=== PATIENT | female | born 1990 | race Caucasian/White ===

== ENCOUNTER 2020-07-27 08:14 | Emergency (ER) | payer OTHER ==
--- NOTE | 2020-07-27 08:23 | ED Physician Documentation ---
PD HPI CHEST PAIN - Stated complaint Stated Complaint: CHEST PX - History obtained from History obtained from: Patient - History of Present Illness Timing - onset: How many days ago (several days of pain, with worse today) Timing - onset during: Rest Timing - duration: Hours Timing - details: Gradual onset, Waxing and waning Quality: Aching, Pain Location: Substernal Radiation: Abdominal Improved by: Antacids. No: Rest Worsened by: No: Exertion Associated symptoms: Nausea. No: Shortness of air, Diaphoresis, Feeling faint / dizzy Similar symptoms before: Has not had sx before Recently seen: Not recently seen Review of Systems Constitutional: denies: Fever, Chills Nose: denies: Rhinorrhea / runny nose, Congestion Throat: denies: Sore throat Respiratory: denies: Cough GI: reports: Abdominal Pain, Nausea, Bloody / black stool (she sya might have some dark colored stool but not black per se.). denies: Abdominal Swelling, Vomiting, Constipation, Diarrhea : denies: Dysuria, Frequency Musculoskeletal: denies: Neck pain, Back pain Neurologic: reports: Generalized weakness. denies: Focal weakness, Numbness, Near syncope PD PAST MEDICAL HISTORY - Past Medical History Cardiovascular: None Respiratory: None Neuro: None Endocrine/Autoimmune: None GI: None - Present Medications Home Medications: Ambulatory Orders Medication Instructions Recorded Confirmed Albuterol Sulfate [Proair Hfa 1 - 2 puffs INH Q4H PRN 07/27/20 07/27/20 Inhaler] Lidocaine Viscous 2% [Xylocaine 5 ml PO Q4H PRN #100 ml 07/27/20 Viscous 2%] Loratadine [Claritin] 10 mg ORAL DAILY 07/27/20 07/27/20 Medroxyprogesterone Acetate 10 mg PO ONCE 07/27/20 07/27/20 [Provera] Pantoprazole Sodium 20 mg PO DAILY 30 Days #30 tab 07/27/20 Sucralfate [Carafate] 1 gm PO ACHS #20 tablet 07/27/20 - Allergies Allergies/Adverse Reactions: Allergies Allergy/AdvReac Type Severity Reaction Status Date / Time Sulfa (Sulfonamide Allergy Emesis Verified 07/27/20 08:17 Antibiotics) PD ED PE NORMAL - Vitals Vital signs reviewed: Yes - General General: Alert and oriented X 3, Well developed/nourished, Other (does appear uncomfortable) - HEENT HEENT: Pharynx benign - Neck Neck: Supple, no meningeal sign, No adenopathy - Cardiac Cardiac: RRR, No murmur - Respiratory Respiratory: No respiratory distress, Clear bilaterally, Other (no chestwall tenderness) - Abdomen Abdomen: Normal bowel sounds, Soft, Non distended, No organomegaly, Other (tender epigastric area) Results - Vitals Vitals: Vital Signs - 24 hr 07/27/20 07/27/20 07/27/20 08:19 08:32 09:45 Temperature 36.8 C 37.4 C 36.8 C Heart Rate 96 90 84 Respiratory 18 18 18 Rate Blood Pressure 139/89 H 129/82 H 127/81 H O2 Saturation 99 100 99 Oxygen O2 Source Room air - EKG (time done) 08:26 Rate: Rate (enter#) (88) Rhythm: NSR [place]: Normal Intervals: Normal [place] QRS: Normal Ischemia: Normal ST segments. No: ST elevation c/w ischemia, ST depression - Labs Labs: Laboratory Tests 07/27/20 07/27/20 07/27/20 08:54 08:54 08:54 WBC 5.4 RBC 4.95 Hgb 14.6 Hct 42.1 MCV 85.1 MCH 29.5 MCHC 34.7 RDW 12.2 Plt Count 261 MPV 10.3 Neut # (Auto) 3.1 Lymph # (Auto) 1.8 [place] # (Auto) 0.5 Eos # (Auto) 0.1 Baso # (Auto) 0.0 Absolute Nucleated RBC 0.00 Nucleated RBC % 0.0 Sodium 136 Potassium 4.4 Chloride 99 L Carbon Dioxide 28 Anion Gap 9.0 BUN 11 Creatinine 0.7 Estimated GFR (MDRD) 98 Glucose 98 Calcium 9.5 Total Bilirubin 1.2 H AST 23 ALT 33 Alkaline Phosphatase 75 Troponin I High Sens 2.3 Total Protein 7.6 Albumin 4.6 Globulin 3.0 Albumin/Globulin Ratio 1.5 Lipase 27 - Rads (name of study) chest xray Radiology: Prelim report reviewed (no acute process), See rad report PD MEDICAL DECISION MAKING - ED course Complexity details: reviewed results, re-evaluated patient (improved with GI cocktail. ), considered differential (seems likely GERD with esophagitis. Will check heart/lung causes and also consider gallbladder/pancreas too. ), d/w patient Departure - Departure Disposition: 01 Home, Self Care Clinical Impression: Chest pain Qualifiers: Chest pain type: unspecified Qualified Code(s): R07.9 - Chest pain, unspecified GERD with esophagitis Qualifiers: Esophagitis bleeding: without hemorrhage Qualified Code(s): K21.00 - Gastro- esophageal reflux disease with esophagitis, without bleeding Condition: Stable Record reviewed to determine appropriate education?: Yes Instructions: ED GERD Follow-Up: ALVIN Leigh [Provider Group] Prescriptions: Sucralfate [Carafate] 1 gm PO ACHS #20 tablet Pantoprazole Sodium 20 mg PO DAILY 30 Days #30 tab Lidocaine Viscous 2% [Xylocaine Viscous 2%] 5 ml PO Q4H PRN #100 ml PRN Reason: Pain Comments: No signs of causation from heart lungs pancreas liver. It does sound like an irritation of the stomach with acid refluxing causing irritation of the esophagus. I would have you take acid reducing medicine of pantoprazole daily for the next month. Use suckle fate to coat the stomach and esophagus several times daily for the next 5 days or so to initially treated better. To that add antacids such as Maalox or Mylanta and can combine with the lidocaine to help with pain in the short-term. Add Tylenol if needed for pain. [place] food as you have been doing until feeling better. Follow-up with your primary care if not improved well over the next 3 to 5 days and resolved by a week or so. Discharge Date/Time: 07/27/20 10:05
[2020-07-27] MEDS ORDERED: MAG HYDROX/AL HYDROX/SIMETH 30 ML UDC PO STA (08:40)
[2020-07-27] MEDS ORDERED: LIDOCAINE VISCOUS 2% 15 ML UDC MM STA (08:40)
[2020-07-27] MEDS ORDERED: FAMOTIDINE 20 MG TABLET PO STA (08:40)
[2020-07-27] MEDS ORDERED: ACETAMINOPHEN 325 MG TABLET PO STA (08:40)
[2020-07-27 09:02] LABS: BASOPHILS % (AUTO) 0.4 %; EOSINOPHILS # (AUTO) 0.1 10^3/uL (0.0-0.7); EOSINOPHILS % (AUTO) 1.1 %; HCT - HEMATOCRIT 42.1 % (37.0-47.0); HGB - HEMOGLOBIN 14.6 g/dL (12.0-16.0); LYMPHOCYTES # (AUTO) 1.8 10^3/uL (1.5-3.5); MEAN CORPUSCULAR HEMOGLOBIN 29.5 pg (27.0-31.0); MEAN CORPUSCULAR HGB CONC 34.7 g/dL (32.0-36.0); MEAN CORPUSCULAR VOLUME 85.1 fL (81.0-99.0); MEAN PLATELET VOLUME 10.3 fL (7.9-10.8); MONOCYTES # (AUTO) 0.5 10^3/uL (0.0-1.0); MONOCYTES % (AUTO) 8.8 %; NEUTROPHILS # (AUTO) 3.1 10^3/uL (1.5-6.6); NEUTROPHILS % (AUTO) 56.5 %; PLT - PLATELET COUNT 261 10^3/uL (130-450); RED BLOOD COUNT 4.95 10^6/uL (4.20-5.40); RED CELL DISTRIBUTION WIDTH 12.2 % (12.0-15.0); WHITE BLOOD COUNT 5.4 x10^3/uL (4.8-10.8)
--- NOTE | 2020-07-27 09:10 | XRAY Report ---
PROCEDURE: Chest 1 View X-Ray INDICATIONS: Chest Pain TECHNIQUE: One view of the chest was acquired. COMPARISON: None FINDINGS: Surgical changes and devices: None. Lungs and pleura: No pleural effusions or pneumothorax. Lungs are clear. Mediastinum: Mediastinal contours appear normal. Heart size is normal. Bones and chest wall: No suspicious bony lesions. Overlying soft tissues appear unremarkable. IMPRESSION: No acute pulmonary process. Reviewed by: Selena Baldwin MD on 07/27/2020 8:08 AM LUI Approved by: Selena Baldwin MD on 07/27/2020 8:08 AM LUI Station ID: [id number]
[2020-07-27 09:25] LABS: ALBUMIN 4.6 g/dL (3.2-5.5); ALBUMIN/GLOBULIN RATIO 1.5 (1.0-2.2); BILIRUBIN,TOTAL 1.2 mg/dL (0.2-1.0); CALCIUM 9.5 mg/dL (8.5-10.3); CREATININE 0.7 mg/dL (0.4-1.0); POTASSIUM 4.4 mmol/L (3.5-5.0); TOTAL PROTEIN 7.6 g/dL (6.7-8.2)
[2020-07-27 09:46] VITALS: BP 127/81
== END 2020-07-27 10:05 | disposition home or self-care (01) ==
LOC: ED 08:14
DX: K21.00 Gastro-esophageal reflux disease with esophagitis, without bleeding (principal); R07.89 Other chest pain
CPT/HCPCS: 36415; 71045; 80053; 83690; 84484; 85025; 93005; 99284; A9270

== ENCOUNTER 2020-08-31 00:04 | Emergency (ER) | payer OTHER ==
--- NOTE | 2020-08-31 00:24 | ED Physician Documentation ---
PD HPI CHEST PAIN - Stated complaint Stated Complaint: LT SIDE SHOULDER NUMB,CP - Chief complaint Chief Complaint: Cardiac - History obtained from History obtained from: Patient - History of Present Illness Timing - onset: How many days ago (3) Timing - duration: Days (3) Timing - details: Gradual onset, Waxing and waning Quality: Aching, Sharp, Pain Location: Left chest, Left shoulder/arm Radiation: Left upper extremity. No: Jaw, Neck Improved by: No: Rest Worsened by: Movement, Palpation. No: Exertion, Inspiration Associated symptoms: Feeling faint / dizzy. No: Shortness of air, Nausea, Palpi tations, Cough Similar symptoms before: Has not had sx before (seen a month ago for substernal and epigastric with presumed Dx gastritis/esophagitis. Treated with [id number] an d antacids and improved. She says this pain is different.) Recently seen: Clinic (had first Covid vaccine a week ago, with out really any symptoms the first few days. Had vaccine given in left deltoid.) Review of Systems Constitutional: denies: Fever, Chills Nose: denies: Rhinorrhea / runny nose, Congestion Throat: denies: Sore throat Respiratory: denies: Cough GI: denies: Nausea, Vomiting Skin: denies: Rash, Lesions Musculoskeletal: denies: Neck pain, Back pain Neurologic: denies: Generalized weakness, Near syncope, Syncope Immunocompromised: denies: Immunocompromised PD PAST MEDICAL HISTORY - Past Medical History Cardiovascular: None Respiratory: None Neuro: None Endocrine/Autoimmune: None GI: None PROCESSING ENGINEER: None : None HEENT: None Psych: None Musculoskeletal: None Derm: None - Past Surgical History Past Surgical History: Yes General: Cholecystectomy HEENT: Tonsil/Adenoidectomy - Present Medications Home Medications: Ambulatory Orders Medication Instructions Recorded Confirmed Albuterol Sulfate [Proair Hfa 1 - 2 puffs INH Q4H PRN 07/27/20 07/27/20 Inhaler] Lidocaine Viscous 2% [Xylocaine 5 ml PO Q4H PRN #100 ml 07/27/20 Viscous 2%] Loratadine [Claritin] 10 mg ORAL DAILY 07/27/20 07/27/20 Medroxyprogesterone Acetate 10 mg PO ONCE 07/27/20 07/27/20 [Provera] Pantoprazole Sodium 20 mg PO DAILY 30 Days #30 tab 07/27/20 Sucralfate [Carafate] 1 gm PO ACHS #20 tablet 07/27/20 dexAMETHasone [Decadron] 4 mg PO DAILY #5 tablet 08/31/20 - Allergies Allergies/Adverse Reactions: Allergies Allergy/AdvReac Type Severity Reaction Status Date / Time Sulfa (Sulfonamide Allergy Emesis Verified 08/31/20 00:13 Antibiotics) - Living Situation Living Situation: reports: With family Living Arrangement: reports: At home - Social History Does the pt smoke?: No Smoking Status: Never smoker Does the pt drink ETOH?: No Does the pt have substance abuse?: No - Immunizations Immunizations are current?: Yes PD ED PE NORMAL - Vitals Vital signs reviewed: Yes - General General: Alert and oriented X 3, No acute distress, Well developed/nourished - HEENT HEENT: Moist mucous membranes, Pharynx benign - Neck Neck: Supple, no meningeal sign, No adenopathy - Cardiac Cardiac: RRR, No murmur - Respiratory Respiratory: Clear bilaterally, Other (chestwall tenderness reproducing the pain on left pectoral and anterior shoulder area. Skin not sensitive. ) - Abdomen Abdomen: Soft, Non tender - Derm Derm: Normal color, Warm and dry - Extremities Extremities: No edema, No calf tenderness / cord - Neuro Neuro: Alert and oriented X 3, No motor deficit, Normal speech Results - Vitals Vitals: Vital Signs - 24 hr 08/31/20 08/31/20 08/31/20 00:13 00:41 02:16 Temperature 36.5 C 36.8 C Heart Rate 77 85 84 Respiratory 16 16 18 Rate Blood Pressure 125/81 H 128/89 H 105/66 O2 Saturation 98 100 97 Oxygen O2 Source Room air - EKG (time done) 00:09 Rate: Rate (enter#) (82) Rhythm: NSR [place]: Normal Intervals: Normal [place] QRS: Normal Ischemia: Normal ST segments. No: ST elevation c/w ischemia, ST depression Compare to prior EKG: Unchanged from prior EKG - Labs Labs: Laboratory Tests 08/31/20 08/31/20 08/31/20 00:28 00:28 00:28 WBC 7.4 RBC 4.72 Hgb 13.5 Hct 40.1 MCV 85.0 MCH 28.6 MCHC 33.7 RDW 12.4 Plt Count 278 MPV 9.8 Neut # (Auto) 4.2 Lymph # (Auto) 2.5 [place] # (Auto) 0.6 Eos # (Auto) 0.1 Baso # (Auto) 0.0 Absolute Nucleated RBC 0.00 Nucleated RBC % 0.0 Sodium 141 Potassium 3.8 Chloride 105 Carbon Dioxide 26 Anion Gap 10.0 BUN 15 Creatinine 0.7 Estimated GFR (MDRD) 98 Glucose 97 Calcium 9.6 Total Bilirubin 0.7 AST 20 ALT 32 Alkaline Phosphatase 82 Troponin I High Sens 2.5 Total Protein 6.9 Albumin 4.1 Globulin 2.8 Albumin/Globulin Ratio 1.5 Lipase 35 - Rads (name of study) chest xray Radiology: Prelim report reviewed (normal), See rad report PD MEDICAL DECISION MAKING - ED course Complexity details: considered differential, d/w patient Departure - Departure Disposition: 01 Home, Self Care Clinical Impression: Acute chest wall pain Condition: Stable Record reviewed to determine appropriate education?: Yes Instructions: ED Chest Pain Costochondritis Follow-Up: MIKE ESQUIVEL MD [Primary Care Provider] - Prescriptions: dexAMETHasone [Decadron] 4 mg PO DAILY #5 tablet Comments: Your EKG, chest x-ray, blood tests are good without any signs of more significant cause for your pain. You do have tenderness in the chest wall and this is suggestive of some inflammation in the muscle and skeletal system. This may relate to some inflammation and subsequent to your vaccine a week ago. It could be independent of that. I would suggest Decadron steroid anti-inflammatory daily for the next several days. Add Tylenol 500 mg 4 times a day. Add just some ibuprofen if needed for pains as well. Try to minimize the ibuprofen since you are to had stomach symptoms just a month or so ago. I would anticipate improvement in your chest pain over the next few days. Follow-up if not improved and return if worse Discharge Date/Time: 08/31/20 02:19
[2020-08-31 00:34] LABS: BASOPHILS % (AUTO) 0.5 %; EOSINOPHILS # (AUTO) 0.1 10^3/uL (0.0-0.7); EOSINOPHILS % (AUTO) 1.6 %; HCT - HEMATOCRIT 40.1 % (37.0-47.0); HGB - HEMOGLOBIN 13.5 g/dL (12.0-16.0); LYMPHOCYTES # (AUTO) 2.5 10^3/uL (1.5-3.5); LYMPHOCYTES % (AUTO) 33.2 %; MEAN CORPUSCULAR HEMOGLOBIN 28.6 pg (27.0-31.0); MEAN CORPUSCULAR HGB CONC 33.7 g/dL (32.0-36.0); MEAN PLATELET VOLUME 9.8 fL (7.9-10.8); MONOCYTES # (AUTO) 0.6 10^3/uL (0.0-1.0); MONOCYTES % (AUTO) 7.4 %; NEUTROPHILS # (AUTO) 4.2 10^3/uL (1.5-6.6); PLT - PLATELET COUNT 278 10^3/uL (130-450); RED BLOOD COUNT 4.72 10^6/uL (4.20-5.40); RED CELL DISTRIBUTION WIDTH 12.4 % (12.0-15.0); WHITE BLOOD COUNT 7.4 x10^3/uL (4.8-10.8)
[2020-08-31] MEDS ORDERED: KETOROLAC 15 MG/ML VIAL IVP STA (00:39)
[2020-08-31] MEDS ORDERED: MORPHINE 2 MG/ML CARPUJECT IVP STA (00:39)
[2020-08-31 00:51] LABS: ALBUMIN 4.1 g/dL (3.2-5.5); ALBUMIN/GLOBULIN RATIO 1.5 (1.0-2.2); BILIRUBIN,TOTAL 0.7 mg/dL (0.2-1.0); CALCIUM 9.6 mg/dL (8.5-10.3); CREATININE 0.7 mg/dL (0.4-1.0); POTASSIUM 3.8 mmol/L (3.5-5.0); TOTAL PROTEIN 6.9 g/dL (6.7-8.2)
[2020-08-31] MEDS ORDERED: ACETAMINOPHEN 325 MG TABLET PO STA (01:48)
[2020-08-31] MEDS ORDERED: DEXAMETHASONE 10 MG/ML VIAL IVP STA (01:48)
[2020-08-31 02:19] VITALS: BP 105/66
--- NOTE | 2020-08-31 08:15 | XRAY Report ---
PROCEDURE: Chest 1 View X-Ray INDICATIONS: Chest pain TECHNIQUE: One view of the chest was acquired. COMPARISON: 07/27/2020 FINDINGS: Surgical changes and devices: None. Lungs and pleura: No pleural effusions or pneumothorax. Lungs are clear. Mediastinum: Mediastinal contours appear normal. Heart size is normal. Bones and chest wall: No suspicious bony lesions. Overlying soft tissues appear unremarkable. IMPRESSION: No acute cardiopulmonary process demonstrated radiographically. Reviewed by: Marco Casillas MD on 08/31/2020 8:14 AM PDT Approved by: Marco Casillas MD on 08/31/2020 8:14 AM PDT Station ID: [id number]
== END 2020-08-31 02:19 | disposition home or self-care (01) ==
LOC: ED 00:04
DX: R07.89 Other chest pain (principal)
CPT/HCPCS: 36415; 71045; 80053; 83690; 84484; 85025; 93005; 96374; 96375; 99284; A9270

== ENCOUNTER 2020-11-08 11:58 | Emergency (ER) | payer OTHER ==
[2020-11-08 12:59] LABS: BASOPHILS % (AUTO) 0.5 %; EOSINOPHILS # (AUTO) 0.1 10^3/uL (0.0-0.7); EOSINOPHILS % (AUTO) 1.3 %; HCT - HEMATOCRIT 43.9 % (37.0-47.0); LYMPHOCYTES # (AUTO) 2.6 10^3/uL (1.5-3.5); LYMPHOCYTES % (AUTO) 43.9 %; MEAN CORPUSCULAR HEMOGLOBIN 28.9 pg (27.0-31.0); MEAN CORPUSCULAR HGB CONC 34.2 g/dL (32.0-36.0); MEAN CORPUSCULAR VOLUME 84.6 fL (81.0-99.0); MEAN PLATELET VOLUME 11.2 fL (7.9-10.8); MONOCYTES # (AUTO) 0.4 10^3/uL (0.0-1.0); MONOCYTES % (AUTO) 7.2 %; NEUTROPHILS # (AUTO) 2.8 10^3/uL (1.5-6.6); NEUTROPHILS % (AUTO) 46.8 %; PLT - PLATELET COUNT 265 10^3/uL (130-450); RED BLOOD COUNT 5.19 10^6/uL (4.20-5.40); RED CELL DISTRIBUTION WIDTH 12.8 % (12.0-15.0)
[2020-11-08 13:12] LABS: ALBUMIN 4.5 g/dL (3.2-5.5); ALBUMIN/GLOBULIN RATIO 1.5 (1.0-2.2); BILIRUBIN,TOTAL 0.9 mg/dL (0.2-1.0); CALCIUM 9.5 mg/dL (8.5-10.3); CREATININE 0.8 mg/dL (0.4-1.0); TOTAL PROTEIN 7.5 g/dL (6.7-8.2)
--- NOTE | 2020-11-08 13:44 | ED Physician Documentation ---
PD HPI ABD PAIN - Stated complaint Stated Complaint: ABD PX - Chief complaint Chief Complaint: Abd Pain - History obtained from History obtained from: Patient - History of Present Illness Timing - onset: How many days ago (2) Timing - duration: Days (2) Timing - details: Gradual onset Pain level max: 5 Pain level now: 2 Quality: Aching, Pain Location: RLQ, Suprapubic, LLQ Radiation: No: Chest, , Lower back, Left flank, Left shoulder, Right flank, Right shoulder, Upper back Improved by: No: Eating, Laying still, Vomiting, BM, Position, Meds Worsened by: Palpation. No: Eating, Moving, Breathing, Position Associated symptoms: Hematuria (states blood in her urine lately.). No: Fever, Nausea, Vomiting, Hematemesis, Diarrhea, Constipation, Melena, Hematochezia, Dysuria - Additional information Additional information: history of PCOS. Review of Systems Constitutional: denies: Fever, Chills Cardiac: denies: Chest pain / pressure Respiratory: denies: Cough GI: denies: Nausea, Vomiting : denies: Dysuria, Frequency, Hesitancy Skin: denies: Rash Musculoskeletal: denies: Neck pain, Back pain Neurologic: denies: Headache PD PAST MEDICAL HISTORY - Past Medical History Cardiovascular: None Respiratory: None Neuro: None Endocrine/Autoimmune: None GI: None PEER COUNSELOR: None : None HEENT: None Psych: None Musculoskeletal: None Derm: None - Past Surgical History Past Surgical History: Yes General: Cholecystectomy HEENT: Tonsil/Adenoidectomy - Present Medications Home Medications: Ambulatory Orders Medication Instructions Recorded Confirmed Albuterol Sulfate [Proair Hfa 1 - 2 puffs INH Q4H PRN 07/27/20 07/27/20 Inhaler] Lidocaine Viscous 2% [Xylocaine 5 ml PO Q4H PRN #100 ml 07/27/20 Viscous 2%] Loratadine [Claritin] 10 mg ORAL DAILY 07/27/20 07/27/20 Medroxyprogesterone Acetate 10 mg PO ONCE 07/27/20 07/27/20 [Provera] Pantoprazole Sodium 20 mg PO DAILY 30 Days #30 tab 07/27/20 Sucralfate [Carafate] 1 gm PO ACHS #20 tablet 07/27/20 dexAMETHasone [Decadron] 4 mg PO DAILY #5 tablet 08/31/20 - Allergies Allergies/Adverse Reactions: Allergies Allergy/AdvReac Type Severity Reaction Status Date / Time Sulfa (Sulfonamide Allergy Itching Verified 11/08/20 12:17 Antibiotics) - Social History Does the pt smoke?: No Smoking Status: Never smoker Does the pt drink ETOH?: No Does the pt have substance abuse?: No - Immunizations Immunizations are current?: Yes PD ED PE NORMAL - Vitals Vital signs reviewed: Yes - General General: Alert and oriented X 3, No acute distress - HEENT HEENT: Moist mucous membranes - Neck Neck: Supple, no meningeal sign - Cardiac Cardiac: RRR - Respiratory Respiratory: No respiratory distress, Clear bilaterally - Abdomen Abdomen: Soft, Non distended, Other (mild TTP over the B LQ of the abdomen. no peritoneal ) - Back Back: No CVA TTP, No spinal TTP - Derm Derm: Warm and dry - Extremities Extremities: No edema - Neuro Neuro: Alert and oriented X 3 Results - Vitals Vitals: Vital Signs - 24 hr 11/08/20 11/08/20 11/08/20 12:12 13:47 15:00 Temperature 36.6 C 36.8 C 36.5 C Heart Rate 73 82 80 Respiratory 16 16 16 Rate Blood Pressure 120/81 H 107/74 110/76 O2 Saturation 99 97 98 Oxygen O2 Source Room air - Labs Labs: Laboratory Tests 11/08/20 11/08/20 11/08/20 12:51 12:51 13:55 WBC 6.0 RBC 5.19 Hgb 15.0 Hct 43.9 MCV 84.6 MCH 28.9 MCHC 34.2 RDW 12.8 Plt Count 265 MPV 11.2 H Neut # (Auto) 2.8 Lymph # (Auto) 2.6 [place] # (Auto) 0.4 Eos # (Auto) 0.1 Baso # (Auto) 0.0 Absolute Nucleated RBC 0.00 Nucleated RBC % 0.0 Sodium 136 Potassium 4.0 Chloride 102 Carbon Dioxide 26 Anion Gap 8.0 BUN 7 Creatinine 0.8 Estimated GFR (MDRD) 84 L Glucose 93 Calcium 9.5 Total Bilirubin 0.9 AST 34 ALT 47 Alkaline Phosphatase 69 Total Protein 7.5 Albumin 4.5 Globulin 3.0 Albumin/Globulin Ratio 1.5 Lipase 33 Urine Color YELLOW Urine Clarity CLEAR Urine pH 6.5 Ur Specific [place] <=1.005 Urine Protein NEGATIVE Urine Glucose (UA) NEGATIVE Urine Ketones NEGATIVE Urine Occult Blood NEGATIVE Urine Nitrite NEGATIVE Urine Bilirubin NEGATIVE Urine Urobilinogen 0.2 (NORMAL) Ur Leukocyte Esterase NEGATIVE Ur Microscopic Review NOT INDICATED Urine Culture Comments NOT INDICATED Urine HCG, Qual NEGATIVE - Rads (name of study) CT abd/pelvis Radiology: Final report received, EMP read contemporaneously, See rad report (1. Appendix is normal. 2. No free fluid or free air. 3. No dilated loops of bowel. 4. Status post cholecystectomy. ) PD MEDICAL DECISION MAKING - ED course Complexity details: reviewed results, re-evaluated patient, considered differential, d/w patient ED course: 30-year-old female with abdominal pain. Unclear etiology. Does not want a pelvic ultrasound today. CT shows a normal appendix. Possible that her pain is related to her PCOS. Patient is well-appearing, nontoxic. Afebrile. Declines a pelvic exam as well. Denies any discharge, itching, etc. Patient counseled regarding signs and symptoms for which I believe and urgent re-evaluation would be necessary. Patient with good understanding of and agreement to plan and is comfortable going home at this time This document was made in part using voice recognition software. While efforts are made to proofread this document, sound alike and grammatical errors may occur. Departure - Departure Disposition: 01 Home, Self Care Clinical Impression: Abdominal pain Qualifiers: Abdominal location: lower abdomen, unspecified Qualified Code(s): R10.30 - Lo wer abdominal pain, unspecified Condition: Good Instructions: ED Abdominal Pain Unkn Cause Follow-Up: your,doctor in 1 week [Other] Comments: The cause of your symptoms is unclear today. There are no acute findings on your laboratory testing, urinalysis or CT scan to explain your symptoms. If symptoms continue, you can consider a pelvic ultrasound with your doctor. Return if you worsen. Discharge Date/Time: 11/08/20 15:36
[2020-11-08 14:05] LABS: BILIRUBIN,URINE NEGATIVE (NEGATIVE); GLUCOSE, URINE (UA) NEGATIVE (NEGATIVE); KETONES,URINE (UA) NEGATIVE (NEGATIVE); LEUKOCYTE ESTERASE, URINE NEGATIVE (NEGATIVE); NITRITE,URINE NEGATIVE (NEGATIVE); OCCULT BLOOD,URINE NEGATIVE (NEGATIVE); PH,URINE 6.5 PH (5.0-7.5); PROTEIN,URINE NEGATIVE (NEGATIVE); UROBILINOGEN,URINE 0.2 (NORMAL) E.U./dL (NORMAL)
[2020-11-08] MEDS ORDERED: IOPAMIDOL-300 100 ML VIAL ONE (14:20)
[2020-11-08 14:29] LABS: CLARITY,URINE CLEAR (CLEAR); HCG UR QUAL NEGATIVE
--- NOTE | 2020-11-08 15:01 | CT Report ---
PROCEDURE: Abdomen/Pelvis W INDICATIONS: RLQ abd pain CONTRAST: IV CONTRAST: Isovue 300 ml: 100 PO CONTRAST: *NO PO CONTRAST TECHNIQUE: After the administration of intravenous contrast, 5 mm thick sections acquired from the diaphragms to the symphysis. 5 mm thick coronal and sagittal reformats were acquired. For radiation dose reducti on, the following was used: automated exposure control, adjustment of mA and/or kV according to roly ent size. COMPARISON: None. FINDINGS: Image quality: Excellent. ABDOMEN: Lung bases: Lung bases are clear. Heart size is normal. Solid organs: Liver and spleen are normal in size and enhancement. Hepatic fatty infiltration. Gall bladder is surgically absent Biliary system is non dilated. Pancreas enhances normally. No adrenal nodules. Kidneys demonstrate normal size and enhancement, without hydronephrosis. Peritoneum and bowel: Bowel loops demonstrate normal wall thickness and caliber. No free fluid or a ir. The appendix is normal. Nodes and vessels: No retroperitoneal or mesenteric adenopathy by size criteria. Aorta and inferior vena cava are normal in size. Miscellaneous: No ventral hernias. PELVIS: Genitourinary: Bladder wall thickness is normal. Uterus and adnexa are within normal limits by CT i maging. If there is clinical concern for pelvic pathology, consider pelvic ultrasound for definitive evaluation of the reproductive organs. Miscellaneous: No inguinal hernias or adenopathy. Bones: No suspicious bony lesions. No vertebral body compression fractures. IMPRESSION: 1. Appendix is normal. 2. No free fluid or free air. 3. No dilated loops of bowel. 4. Status post cholecystectomy. Reviewed by: Vannesa Novak MD, PhD on 11/08/2020 3:00 PM PDT Approved by: Vannesa Novak MD, PhD on 11/08/2020 3:00 PM PDT Station ID: [id number]
[2020-11-08 15:36] VITALS: BP 110/76
[2020-11-08] MEDS ORDERED: IOPAMIDOL-300 100 ML VIAL IVP ONE (15:50)
== END 2020-11-08 15:36 | disposition home or self-care (01) ==
LOC: ED 11:58
DX: R10.30 Lower abdominal pain, unspecified (principal); E28.2 Polycystic ovarian syndrome
CPT/HCPCS: 36415; 74177; 80053; 81003; 81025; 83690; 85025; 99284; Q9967; 81001; 87086

== ENCOUNTER 2020-11-30 08:37 | Emergency (ER) | payer OTHER ==
[2020-11-30] MEDS ORDERED: DEXAMETHASONE 10 MG/ML VIAL PO STA (09:20)
[2020-11-30] MEDS ORDERED: CHERRY SYRUP 10 ML UDC PO ONE (09:20)
[2020-11-30] MEDS ORDERED: KETOROLAC 60 MG/2 ML VIAL IM STA (09:21)
--- NOTE | 2020-11-30 09:23 | ED Physician Documentation ---
PD HPI BACK PAIN - Stated complaint Stated Complaint: BACK PX - Chief complaint Chief Complaint: Back Pain - History obtained from History obtained from: Patient - History of Present Illness Timing - onset: How many days ago (3) Timing - duration: Days (3) Timing - details: Gradual onset, Still present Location: Mid, Lower Quality: Pain, Spasm, Sharp Associated symptoms: No: Fever, Weakness, Numbness, Incontinent of urine, Unable to urinate, Hematuria, Incontinent of stool Improves with: Rest, Position Contributing factors: Other (does not do much and cannot think of anything she did that would have caused back pain) Similar symptoms before: No diagnosis Recently seen: Clinic (routine follow up for PCOS) - Additional information Additional information: 30-year-old female with a history of polycystic ovarian syndrome has developed some mid back pain that is gone down into her lower back that began about 3 days ago. She is not had relief with ice or heat. She does not recall anything strenuous that she is done the could have gotten her back out of kilter. She does state that she usually has some back pain with her periods and she has been in to see the FAMILY THERAPIST in follow-up and has had a recent ultrasound for polycystic ovarian syndrome and she is on some Provera. She states that she has never had back pain with Provera before. She denies any urinary symptoms she denies any fever or nausea. Review of Systems Constitutional: denies: Fever Eyes: denies: Decreased vision Ears: denies: Ear pain Nose: denies: Congestion Throat: denies: Sore throat Cardiac: denies: Chest pain / pressure, Palpitations Respiratory: denies: Dyspnea, Cough GI: reports: Constipation. denies: Abdominal Pain, Nausea, Vomiting, Diarrhea : denies: Dysuria, Frequency Skin: denies: Rash Musculoskeletal: reports: Back pain. denies: Neck pain, Extremity pain PD PAST MEDICAL HISTORY - Past Medical History Cardiovascular: None Respiratory: None Neuro: None Endocrine/Autoimmune: None GI: None FAMILY THERAPIST: None : None HEENT: None Psych: None Musculoskeletal: None Derm: None - Past Surgical History Past Surgical History: Yes General: Cholecystectomy HEENT: Tonsil/Adenoidectomy - Present Medications Home Medications: Ambulatory Orders Medication Instructions Recorded Confirmed Albuterol Sulfate [Proair Hfa 1 - 2 puffs INH Q4H PRN 07/27/20 11/30/20 Inhaler] Loratadine [Claritin] 10 mg ORAL DAILY PRN 07/27/20 11/30/20 Medroxyprogesterone Acetate 10 mg PO ONCE 07/27/20 11/30/20 [Provera] Cyclobenzaprine [Flexeril] 10 mg PO TID PRN #20 tablet 11/30/20 HYDROcod/ACETAM 5/325 [[place] 5/325] 1 - 2 tablet PO Q6H PRN #14 tablet 11/30/20 - Allergies Allergies/Adverse Reactions: Allergies Allergy/AdvReac Type Severity Reaction Status Date / Time Sulfa (Sulfonamide Allergy Itching Verified 11/30/20 08:51 Antibiotics) - Social History Does the pt smoke?: No Smoking Status: Never smoker Does the pt drink ETOH?: No Does the pt have substance abuse?: No - Immunizations Immunizations are current?: Yes PD ED PE NORMAL - Vitals Vital signs reviewed: Yes (normal ) - General General: Alert and oriented X 3, No acute distress, Well developed/nourished, Other (moves slowly to sit up with back pain ) - HEENT HEENT: Atraumatic, PERRL, EOMI - Neck Neck: Supple, no meningeal sign, No bony TTP - Cardiac Cardiac: RRR, No murmur - Respiratory Respiratory: No respiratory distress, Clear bilaterally - Abdomen Abdomen: Normal bowel sounds, Soft, Non tender, Non distended, No organomegaly - Back Back: No CVA TTP, No spinal TTP, Other (general area of pain is from the ribs down and the area is non-tender. ) - Derm Derm: Normal color, Warm and dry, No rash - Extremities Extremities: No deformity, No edema - Neuro Neuro: Alert and oriented X 3, ship surveyor 2-12 intact, No motor deficit, No sensory deficit, Normal speech Eye Opening: Spontaneous Motor: Obeys Commands Verbal: Oriented GCS Score: 15 - Psych Psych: Normal mood, Normal affect Results - Vitals Vitals: Vital Signs - 24 hr 11/30/20 11/30/20 08:49 10:56 Temperature 36.2 C L 36.9 C Heart Rate 74 82 Respiratory 14 16 Rate Blood Pressure 118/74 113/67 O2 Saturation 99 99 Oxygen O2 Source Room air - Labs Labs: Laboratory Tests 11/30/20 09:40 Urine Color YELLOW Urine Clarity CLEAR Urine pH 6.5 Ur Specific [place] <=1.005 Urine Protein NEGATIVE Urine Glucose (UA) NEGATIVE Urine Ketones TRACE Urine Occult Blood TRACE-INTA Urine Nitrite NEGATIVE Urine Bilirubin NEGATIVE Urine Urobilinogen 0.2 (NORMAL) Ur Leukocyte Esterase NEGATIVE Ur Microscopic Review NOT INDICATED Urine Culture Comments NOT INDICATED Urine HCG, Qual NEGATIVE PD MEDICAL DECISION MAKING - ED course Complexity details: reviewed results, re-evaluated patient, considered differential, d/w patient ED course: 30-year-old female with 3 days of back pain does not have evidence of urinary tract infection. She is treated for low back pain Departure - Departure Disposition: Home, Self Care Clinical Impression: Back pain Qualifiers: Back pain location: low back pain Chronicity: acute Back pain laterality: b ilateral Sciatica presence: without sciatica Qualified Code(s): M54.5 - Low back pain Constipation Qualifiers: Constipation type: unspecified constipation type Qualified Code(s): K59.00 - Constipation, unspecified Condition: Stable Instructions: ED Spasm Back No Trauma Follow-Up: MIKE ESQUIVEL MD [Primary Care Provider] - Prescriptions: Cyclobenzaprine [Flexeril] 10 mg PO TID PRN #20 tablet PRN Reason: Spasms HYDROcod/ACETAM 5/325 [[place] 5/325] 1 - 2 tablet PO Q6H PRN #14 tablet PRN Reason: Pain Comments: Today the medications we have given you for your back pain specifically the [place] will make you constipated. The recommendation is to take a stimulant type laxative like milk of magnesia or magnesium citrate. Discharge Date/Time: 11/30/20 10:56
[2020-11-30 09:55] LABS: BILIRUBIN,URINE NEGATIVE (NEGATIVE); GLUCOSE, URINE (UA) NEGATIVE (NEGATIVE); KETONES,URINE (UA) TRACE mg/dL (NEGATIVE); LEUKOCYTE ESTERASE, URINE NEGATIVE (NEGATIVE); NITRITE,URINE NEGATIVE (NEGATIVE); OCCULT BLOOD,URINE TRACE-INTA (NEGATIVE); PH,URINE 6.5 PH (5.0-7.5); PROTEIN,URINE NEGATIVE (NEGATIVE); UROBILINOGEN,URINE 0.2 (NORMAL) E.U./dL (NORMAL)
[2020-11-30 09:57] LABS: CLARITY,URINE CLEAR (CLEAR); HCG UR QUAL NEGATIVE
[2020-11-30 10:56] VITALS: BP 113/67
== END 2020-11-30 10:56 | disposition home or self-care (01) ==
LOC: ED 08:37
DX: M54.5 Low back pain (principal); K59.00 Constipation, unspecified; E28.2 Polycystic ovarian syndrome
CPT/HCPCS: 81003; 81025; 96372; 99283; 99284; A9270; 81001; 87086

== ENCOUNTER 2020-12-02 07:42 | Emergency (ER) | payer OTHER ==
[2020-12-02] MEDS ORDERED: ONDANSETRON 4 MG/2 ML VIAL IVP STA (08:00)
[2020-12-02] MEDS ORDERED: HYDROmorphone 1 MG/ML CARPUJECT IVP STA (08:00)
--- NOTE | 2020-12-02 08:00 | ED Physician Documentation ---
PD HPI FEMALE - Stated complaint Stated Complaint: LOWER ABD PX - Chief complaint Chief Complaint: Abd Pain - History obtained from History obtained from: Patient - History of Present Illness Timing - onset: Today Timing - duration: Hours Timing - details: Abrupt onset, Still present Associated symptoms: Abdominal pain Contributing factors: Sexually active, Other (has had infertility work up and treatment and has "given up"). No: control OB-CARE AIDE History: G (0), P (0) Similar symptoms before: No diagnosis, Work up / diagnostics (CT and ultrasound .) Recently seen: Clinic, Emergency Dept - Additional information Additional information: 30-year-old female is began to have some pain in the right lower quadrant and she has had repeated episodes she has been evaluated at [facility] and she has had a pelvic ultrasound done showing some polycystic ovaries she has subsequently had a CT scan done of the abdomen pelvis showing a normal appendix. This morning on awakening she had pain in the right lower quadrant she had a severe increase in the pain that is sharp stabbing-like nature in the right lower quadrant and she felt that she was having some difficulty getting a urine stream going. She has treated herself her constipation with magnesium citrate and she has taken some Flexeril for pain she has had in her back. Review of Systems Constitutional: denies: Fever Eyes: denies: Decreased vision Ears: denies: Ear pain Nose: denies: Congestion Throat: denies: Sore throat Cardiac: denies: Chest pain / pressure Respiratory: denies: Dyspnea, Cough GI: reports: Abdominal Pain, Nausea, Vomiting. denies: Constipation, Diarrhea : denies: Dysuria, Frequency Skin: denies: Rash Musculoskeletal: reports: Back pain. denies: Neck pain, Extremity pain PD PAST MEDICAL HISTORY - Past Medical History Cardiovascular: None Respiratory: None Neuro: None Endocrine/Autoimmune: None GI: None CARE AIDE: None : None HEENT: None Psych: None Musculoskeletal: None Derm: None - Past Surgical History Past Surgical History: Yes General: Cholecystectomy HEENT: Tonsil/Adenoidectomy - Present Medications Home Medications: Ambulatory Orders Medication Instructions Recorded Confirmed Albuterol Sulfate [Proair Hfa 1 - 2 puffs INH Q4H PRN 07/27/20 12/02/20 Inhaler] Loratadine [Claritin] 10 mg ORAL DAILY PRN 07/27/20 12/02/20 Medroxyprogesterone Acetate 10 mg PO ONCE 07/27/20 12/02/20 [Provera] Cyclobenzaprine [Flexeril] 10 mg PO TID PRN #20 tablet 11/30/20 12/02/20 HYDROcod/ACETAM 5/325 [[place] 5/325] 1 - 2 tablet PO Q6H PRN #14 tablet 11/30/20 12/02/20 - Allergies Allergies/Adverse Reactions: Allergies Allergy/AdvReac Type Severity Reaction Status Date / Time Sulfa (Sulfonamide Allergy Itching Verified 12/02/20 07:55 Antibiotics) - Social History Does the pt smoke?: No Smoking Status: Never smoker Does the pt drink ETOH?: No Does the pt have substance abuse?: No - Immunizations Immunizations are current?: Yes PD ED PE NORMAL - Vitals Vital signs reviewed: Yes (Tachycardic and hypertensive) - General General: Alert and oriented X 3, Well developed/nourished, Other (The patient is in tears and appears to be in pain.) - HEENT HEENT: Atraumatic, PERRL, EOMI - Neck Neck: Supple, no meningeal sign - Cardiac Cardiac: No murmur, Other (Tachycardic to 110) - Respiratory Respiratory: No respiratory distress, Clear bilaterally - Abdomen Abdomen: Soft, Non distended, No organomegaly, Other (Specific reproducible right lower quadrant abdominal tenderness without referred tenderness.) - Back Back: No CVA TTP, No spinal TTP - Derm Derm: Normal color, Warm and dry, No rash - Extremities Extremities: No deformity, No edema - Neuro Neuro: Alert and oriented X 3, testing manager 2-12 intact, No motor deficit, No sensory deficit, Normal speech Eye Opening: Spontaneous Motor: Obeys Commands Verbal: Oriented GCS Score: 15 - Psych Psych: Normal mood, Normal affect Results - Vitals Vitals: Vital Signs - 24 hr 12/02/20 12/02/20 12/02/20 07:49 08:30 10:29 Temperature 36.6 C 36.8 C Heart Rate 112 H 78 61 Respiratory 18 16 16 Rate Blood Pressure 138/83 H 104/70 111/74 O2 Saturation 99 97 97 Oxygen O2 Source Room air - Labs Labs: Laboratory Tests 12/02/20 12/02/20 12/02/20 08:00 08:00 08:00 WBC 7.3 RBC 5.39 Hgb 15.7 Hct 45.9 MCV 85.2 MCH 29.1 MCHC 34.2 RDW 13.2 Plt Count 256 MPV 10.7 Neut # (Auto) 3.6 Lymph # (Auto) 3.0 [place] # (Auto) 0.6 Eos # (Auto) 0.0 Baso # (Auto) 0.0 Absolute Nucleated RBC 0.00 Nucleated RBC % 0.0 Sodium 136 Potassium 3.5 Chloride 102 Carbon Dioxide 26 Anion Gap 8.0 BUN 10 Creatinine 1.1 H Estimated GFR (MDRD) 58 L Glucose 95 Calcium 9.7 Total Bilirubin 1.0 AST 26 ALT 40 Alkaline Phosphatase 71 Total Protein 7.6 Albumin 4.6 Globulin 3.0 Albumin/Globulin Ratio 1.5 Lipase 28 HCG, Quant 1.21 Urine Color Urine Clarity Urine pH Ur Specific [place] Urine Protein Urine Glucose (UA) Urine Ketones Urine Occult Blood Urine Nitrite Urine Bilirubin Urine Urobilinogen Ur Leukocyte Esterase Ur Microscopic Review Urine Culture Comments Urine HCG, Qual 12/02/20 09:41 WBC RBC Hgb Hct MCV MCH MCHC RDW Plt Count MPV Neut # (Auto) Lymph # (Auto) [place] # (Auto) Eos # (Auto) Baso # (Auto) Absolute Nucleated RBC Nucleated RBC % Sodium Potassium Chloride Carbon Dioxide Anion Gap BUN Creatinine Estimated GFR (MDRD) Glucose Calcium Total Bilirubin AST ALT Alkaline Phosphatase Total Protein Albumin Globulin Albumin/Globulin Ratio Lipase HCG, Quant Urine Color YELLOW Urine Clarity CLEAR Urine pH 6.0 Ur Specific [place] <=1.005 Urine Protein NEGATIVE Urine Glucose (UA) NEGATIVE Urine Ketones NEGATIVE Urine Occult Blood TRACE-LYSE Urine Nitrite NEGATIVE Urine Bilirubin NEGATIVE Urine Urobilinogen 0.2 (NORMAL) Ur Leukocyte Esterase NEGATIVE Ur Microscopic Review NOT INDICATED Urine Culture Comments NOT INDICATED Urine HCG, Qual POSITIVE - Rads (name of study) u/s pelvis with doppler and transvag Radiology: Prelim report reviewed (Impression: No sign of ovarian torsion. Note is made of greater than 12 follicular cyst present within each ovary, consistent with polycystic ovarian syndrome. No evidence of intraperitoneal abdominal free fluid as can be seen in the setting of ruptured ovarian cyst.), EMP read indepedently, See rad report PD MEDICAL DECISION MAKING - ED course Complexity details: reviewed results, re-evaluated patient, considered differential, d/w patient ED course: Having [id number] female previously through infertility treatment has developed some right lower quadrant abdominal pain she has been evaluated at [facility] Matt has been evaluated here she has been treated for constipation and for back pain and this morning has an episode of severe pain. When she arrived I thought she possibly had a torsed ovary and immediately asked the endoscopy technician to provide images and these were without evidence of torsion. She does have what looks like polycystic ovaries. No free fluid. The patient's urinalysis was eventually processed in the lab demonstrating a positive hCG. The patient has had negative urine test in the emergency department 2 days ago. Quantitative hCG is low at 1.21. The patient continues to have right lower quadrant abdominal tenderness and is flabbergasted at the fact she is . She recounts that she has had numerous visits for infertility and she has recently been on some Provera to try to induce a period. She will need a repeat hCG in 2 days time and follow-up with CARE AIDE. Departure - Departure Disposition: 01 Home, Self Care Clinical Impression: Early stage of Abdominal pain Qualifiers: Abdominal location: right lower quadrant Qualified Code(s): R10.31 - Right lower quadrant pain Condition: Stable Instructions: ED Abdominal Pain Rule Out Ectopic, ED Care Follow-Up: MIKE ESQUIVEL MD [Primary Care Provider] - [facility] [Provider Group] Comments: You will need to have a repeat beta-hCG done and follow-up with the CARE AIDE service. This should be done in 2 days time. Your number today is 1.21.
[2020-12-02 08:08] LABS: BASOPHILS % (AUTO) 0.5 %; EOSINOPHILS % (AUTO) 0.5 %; HCT - HEMATOCRIT 45.9 % (37.0-47.0); HGB - HEMOGLOBIN 15.7 g/dL (12.0-16.0); MEAN CORPUSCULAR HEMOGLOBIN 29.1 pg (27.0-31.0); MEAN CORPUSCULAR HGB CONC 34.2 g/dL (32.0-36.0); MEAN CORPUSCULAR VOLUME 85.2 fL (81.0-99.0); MEAN PLATELET VOLUME 10.7 fL (7.9-10.8); MONOCYTES # (AUTO) 0.6 10^3/uL (0.0-1.0); MONOCYTES % (AUTO) 8.5 %; NEUTROPHILS # (AUTO) 3.6 10^3/uL (1.5-6.6); NEUTROPHILS % (AUTO) 49.1 %; PLT - PLATELET COUNT 256 10^3/uL (130-450); RED BLOOD COUNT 5.39 10^6/uL (4.20-5.40); RED CELL DISTRIBUTION WIDTH 13.2 % (12.0-15.0); WHITE BLOOD COUNT 7.3 x10^3/uL (4.8-10.8)
[2020-12-02 08:23] LABS: ALBUMIN 4.6 g/dL (3.2-5.5); ALBUMIN/GLOBULIN RATIO 1.5 (1.0-2.2); CALCIUM 9.7 mg/dL (8.5-10.3); CREATININE 1.1 mg/dL (0.4-1.0); POTASSIUM 3.5 mmol/L (3.5-5.0); TOTAL PROTEIN 7.6 g/dL (6.7-8.2)
--- NOTE | 2020-12-02 10:30 | Ultrasound Report ---
PROCEDURE: Pelvic w/Transvag+Doppler Comp INDICATIONS: pelvic pain, R TECHNIQUE: Real-time scanning was performed of the pelvic organs, with image documentation. Additional endovagi nal scanning was necessary due to incomplete visualization of the adnexal and endometrial structures by transabdominal scanning. COMPARISON: CT abdomen/pelvis 11/08/2020. FINDINGS: No pathologic free abdominal or pelvic fluid. Uterus: Uterus is anteverted and normal in size at 3.6 x 4.8 x 7.3 cm. The endometrium measures 8.3 mm in combined thickness. Ovaries: The left ovary measures 3.2 x 2.6 x 3.2 cm with a 14.1 cc ovarian volume. The right ovary m easures 3.9 x 2.7 x 2.2 cm within overall ovarian volume of 12.2 cc. Greater than 12 follicular cysts are present at each ovary. IMPRESSION: No sign of ovarian torsion. Note is made of greater than 12 follicular cysts present within each ovar y, consistent with polycystic ovarian syndrome. No evidence of intraperitoneal abnormal free fluid as can be seen in the setting of ruptured ovarian cysts. Reviewed by: Tariq Baptiste MD on 12/02/2020 10:29 AM PDT Approved by: Tariq Baptiste MD on 12/02/2020 10:29 AM PDT Station ID: [id number]
[2020-12-02 12:15] LABS: BILIRUBIN,URINE NEGATIVE (NEGATIVE); GLUCOSE, URINE (UA) NEGATIVE (NEGATIVE); KETONES,URINE (UA) NEGATIVE (NEGATIVE); LEUKOCYTE ESTERASE, URINE NEGATIVE (NEGATIVE); NITRITE,URINE NEGATIVE (NEGATIVE); OCCULT BLOOD,URINE TRACE-LYSE (NEGATIVE); PROTEIN,URINE NEGATIVE (NEGATIVE); UROBILINOGEN,URINE 0.2 (NORMAL) E.U./dL (NORMAL)
[2020-12-02 12:16] LABS: CLARITY,URINE CLEAR (CLEAR)
[2020-12-02 12:18] LABS: HCG UR QUAL POSITIVE
[2020-12-02] MEDS ORDERED: SODIUM CHLORIDE 0.9% 1,000 ML IV STA (13:03)
[2020-12-02 15:30] VITALS: BP 114/74
== END 2020-12-02 15:30 | disposition home or self-care (01) ==
LOC: ED 07:42
DX: Z33.1 Pregnant state, incidental (principal); E28.2 Polycystic ovarian syndrome
CPT/HCPCS: 36415; 76830; 76856; 80053; 81003; 81025; 83690; 84702; 85025; 93975; 96374; 99284; J1170; 81001; 87086

== ENCOUNTER 2020-12-03 08:01 | Emergency (ER) | payer OTHER ==
[2020-12-03 08:10] VITALS: BP 114/73
[2020-12-03] MEDS ORDERED: ACETAMINOPHEN 325 MG TABLET PO STA (08:21)
--- NOTE | 2020-12-03 08:27 | ED Physician Documentation ---
PD HPI BACK PAIN - Stated complaint Stated Complaint: BACK PX - Chief complaint Chief Complaint: Abd Pain - History obtained from History obtained from: Patient - History of Present Illness Timing - onset: Yesterday Timing - duration: Days (1) Timing - details: Gradual onset, Still present Location: Lower Quality: Pain, Spasm, Sharp, Similar to prior episodes Associated symptoms: Other (vaginal bleeding this morning X 1). No: Fever, Weakness, Numbness, Incontinent of urine, Unable to urinate, Hematuria, Incontinent of stool Improves with: Rest, Position Worsened by: Movement Similar symptoms before: Diagnosis (lumbar spasm) Recently seen: Emergency Dept - Additional information Additional information: 30-year-old female with history of polycystic ovarian syndrome developed some back pain and some abdominal pain that has been undulating this past month. She was seen on 08 November with right lower quadrant abdominal pain at that time CT was negative she had had an ultrasound previous to that showing polycystic ovaries. She presented to the emergency department on the again with back pain at that time she had a negative test and she is on some Provera. Yesterday she presented with severe right lower quadrant pain and an ultrasound of the pelvis was obtained showing the polycystic ovaries without other specific findings. Yesterday her test was postitive and her quantitative hcG was 1.21. this morning she has back pain again with vaginal bleeding X 1. Review of Systems Constitutional: denies: Fever Eyes: denies: Decreased vision Ears: denies: Ear pain Nose: denies: Congestion Throat: denies: Sore throat Respiratory: denies: Cough GI: denies: Abdominal Pain, Vomiting : denies: Dysuria, Frequency Skin: denies: Rash Musculoskeletal: reports: Back pain. denies: Neck pain, Extremity pain PD PAST MEDICAL HISTORY - Past Medical History Past Medical History: Yes Cardiovascular: None Respiratory: None Neuro: None Endocrine/Autoimmune: None GI: None GRAVEL MACHINE OPERATOR: None : None HEENT: None Psych: Anxiety Musculoskeletal: None Derm: None - Past Surgical History Past Surgical History: Yes General: Cholecystectomy HEENT: Tonsil/Adenoidectomy - Present Medications Home Medications: Ambulatory Orders Medication Instructions Recorded Confirmed Albuterol Sulfate [Proair Hfa 1 - 2 puffs INH Q4H PRN 07/27/20 12/03/20 Inhaler] Loratadine [Claritin] 10 mg ORAL DAILY PRN 07/27/20 12/03/20 Medroxyprogesterone Acetate 10 mg PO ONCE 07/27/20 12/03/20 [Provera] Cyclobenzaprine [Flexeril] 10 mg PO TID PRN #20 tablet 11/30/20 12/03/20 HYDROcod/ACETAM 5/325 [[place] 5/325] 1 - 2 tablet PO Q6H PRN #14 tablet 11/30/20 12/03/20 - Allergies Allergies/Adverse Reactions: Allergies Allergy/AdvReac Type Severity Reaction Status Date / Time Sulfa (Sulfonamide Allergy Itching Verified 12/03/20 08:10 Antibiotics) - Social History Does the pt smoke?: No Smoking Status: Never smoker Does the pt drink ETOH?: No Does the pt have substance abuse?: No - Immunizations Immunizations are current?: Yes PD ED PE NORMAL - Vitals Vital signs reviewed: Yes - General General: Alert and oriented X 3, Well developed/nourished, Other (anxious appearing female clutching the mid back) - HEENT HEENT: Atraumatic, PERRL, EOMI - Neck Neck: Supple, no meningeal sign - Respiratory Respiratory: No respiratory distress - Abdomen Abdomen: Normal bowel sounds, Soft, Non tender, Non distended, No organomegaly - Back Back: No CVA TTP, Other (mid lumbar spine point tenderness without CVA tenderness. no mass or deformity. ) - Derm Derm: Normal color, Warm and dry, No rash - Extremities Extremities: No deformity, No edema - Neuro Neuro: Alert and oriented X 3, health program specialist 2-12 intact, No motor deficit, No sensory deficit, Normal speech Eye Opening: Spontaneous Motor: Obeys Commands Verbal: Oriented GCS Score: 15 - Psych Psych: Normal mood, Normal affect Results - Vitals Vitals: Vital Signs - 24 hr 12/03/20 08:08 Temperature 36.8 C Heart Rate 95 Respiratory 16 Rate Blood Pressure 114/73 O2 Saturation 99 Oxygen O2 Source Room air - Labs Labs: Laboratory Tests 12/03/20 08:26 HCG, Quant < 0.60 PD MEDICAL DECISION MAKING - ED course Complexity details: considered differential, d/w patient ED course: 30-year-old female who has been having some back pain and abdominal pain presented to the emerge department yesterday with right lower quadrant abdominal pain that was severe and resolved during the visit. Yesterday we had a quantitative hCG of 1.21 today this is less than 0.6. I contacted the on-call GRAVEL MACHINE OPERATOR Dr. Odonnell and she felt this was likely due to a corpus luteum cyst induced by the Provera and likely a rupture of that cyst yesterday because the patient's acute pain. She is not . Dr. Odonnell recommends follow-up with GRAVEL MACHINE OPERATOR. For the patient's back pain she is given another dose of dexamethasone as we were able to historically find that that was helpful several days ago when she had a single dose. She will continue the Flexeril as needed. Departure - Departure Disposition: Home, Self Care Clinical Impression: Back pain Qualifiers: Back pain location: low back pain Chronicity: acute Back pain laterality: midline Sciatica presence: without sciatica Qualified Code(s): M54.5 - Low back pain Instructions: ED Neck Back Pain General Follow-Up: [facility] [Provider Group] [facility]
[2020-12-03] MEDS ORDERED: CHERRY SYRUP 10 ML UDC PO ONE (09:29)
[2020-12-03] MEDS ORDERED: DEXAMETHASONE 10 MG/ML VIAL PO STA (09:29)
== END 2020-12-03 09:42 | disposition home or self-care (01) ==
LOC: ED 08:01
DX: M54.5 Low back pain (principal)
CPT/HCPCS: 36415; 84702; 99283; 99284; A9270

== ENCOUNTER 2020-12-05 18:51 | Outpatient (CLI) | payer OTHER | END 2020-12-05 18:52 | disposition other institution (70) | LOC: EMS 18:51 | DX: N93.9 Abnormal uterine and vaginal bleeding, unspecified (principal) ==

== ENCOUNTER 2020-12-05 19:54 | Emergency (ER) | payer OTHER ==
[2020-12-05] MEDS ORDERED: SODIUM CHLORIDE 0.9% 1,000 ML IV STA ×2 (20:22)
[2020-12-05] MEDS ORDERED: IOPAMIDOL-300 100 ML VIAL ONE (20:32)
--- NOTE | 2020-12-05 20:33 | ED Physician Documentation ---
History of Present Illness - Stated complaint Stated Complaint: CRAMPING/PAIN, DIZZY, WEAK - Chief complaint Chief Complaint: Abd Pain - History obtained from History obtained from: Patient, EMS - History of Present Illness Pain level max: 5 Pain level now: 5 - Additonal information Additional information: Patient is a 30-year-old female who presents to the emergency department stating that she is having right lower quadrant abdominal pain, ongoing for the past several days. Tonight she was cooking dinner when she felt lightheaded and near syncopal. Better with lying down, worse with standing Review of Systems Constitutional: denies: Fever, Chills Throat: denies: Sore throat Cardiac: denies: Chest pain / pressure GI: denies: Vomiting, Diarrhea Skin: denies: Rash Musculoskeletal: denies: Neck pain, Back pain Neurologic: denies: Headache PD PAST MEDICAL HISTORY - Past Medical History Cardiovascular: None Respiratory: None Neuro: None Endocrine/Autoimmune: None GI: None TOOL BUILDER: None : None HEENT: None Psych: Anxiety Musculoskeletal: None Derm: None - Past Surgical History Past Surgical History: Yes General: Cholecystectomy HEENT: Tonsil/Adenoidectomy - Present Medications Home Medications: Ambulatory Orders Medication Instructions Recorded Confirmed Albuterol Sulfate [Proair Hfa 1 - 2 puffs INH Q4H PRN 07/27/20 12/05/20 Inhaler] Loratadine [Claritin] 10 mg ORAL DAILY PRN 07/27/20 12/05/20 - Allergies Allergies/Adverse Reactions: Allergies Allergy/AdvReac Type Severity Reaction Status Date / Time Sulfa (Sulfonamide Allergy Itching Verified 12/05/20 20:03 Antibiotics) - Social History Does the pt smoke?: No Smoking Status: Never smoker Does the pt drink ETOH?: No Does the pt have substance abuse?: No - Immunizations Immunizations are current?: Yes PD ED PE NORMAL - Vitals Vital signs reviewed: Yes - General General: Alert and oriented X 3, No acute distress - HEENT HEENT: PERRL, Other (dry lips and tongue) - Neck Neck: Supple, no meningeal sign - Cardiac Cardiac: RRR, No murmur, Strong equal pulses - Respiratory Respiratory: No respiratory distress, Clear bilaterally - Abdomen Abdomen: Normal bowel sounds, Soft, Non distended, Other (TTP RLQ, no peritoneal signs.) - Back Back: No CVA TTP, No spinal TTP - Derm Derm: Warm and dry - Extremities Extremities: No edema, No calf tenderness / cord - Neuro Neuro: Alert and oriented X 3, floor tech 2-12 intact, No motor deficit, No sensory deficit, Normal speech, Other (No nystagmus. Negative Hallpike.) Eye Opening: Spontaneous Motor: Obeys Commands Verbal: Oriented GCS Score: 15 - Psych Psych: Normal mood, Normal affect Results - Vitals Vitals: Vital Signs - 24 hr 12/05/20 20:04 Temperature 36.6 C Heart Rate 74 Respiratory 19 Rate Blood Pressure 143/92 H O2 Saturation 100 Oxygen O2 Source Room air - Labs Labs: Laboratory Tests 12/05/20 12/05/20 12/05/20 20:28 20:28 20:36 WBC 8.3 RBC 4.91 Hgb 14.0 Hct 42.1 MCV 85.7 MCH 28.5 MCHC 33.3 RDW 13.2 Plt Count 245 MPV 10.8 Neut # (Auto) 4.2 Lymph # (Auto) 3.5 [place] # (Auto) 0.6 Eos # (Auto) 0.1 Baso # (Auto) 0.0 Absolute Nucleated RBC 0.00 Nucleated RBC % 0.0 Sodium 138 Potassium 4.2 Chloride 103 Carbon Dioxide 27 Anion Gap 8.0 BUN 10 Creatinine 0.8 Estimated GFR (MDRD) 84 L Glucose 95 Calcium 9.1 Total Bilirubin 0.9 AST 18 ALT 37 Alkaline Phosphatase 59 Total Protein 6.4 L Albumin 3.9 Globulin 2.5 Albumin/Globulin Ratio 1.6 Lipase 32 Urine Color RED/BLOODY Urine Clarity BLOODY Urine pH 6.0 Ur Specific [place] 1.020 Urine Protein 30 H Urine Glucose (UA) NEGATIVE Urine Ketones NEGATIVE Urine Occult Blood LARGE H Urine Nitrite NEGATIVE Urine Bilirubin NEGATIVE Urine Urobilinogen 0.2 (NORMAL) Ur Leukocyte Esterase NEGATIVE Urine RBC TNTC H Urine WBC 4-5 Ur Squamous Epith Cells RARE Squamous Urine Bacteria None Seen Ur Microscopic Review INDICATED Urine Culture Comments NOT INDICATED - Rads (name of study) CT abd/pelvis Radiology: Final report received, EMP read contemporaneously, See rad report PD MEDICAL DECISION MAKING - ED course Complexity details: reviewed results, re-evaluated patient, considered d ifferential, d/w patient ED course: Patient given IV fluids. A CT scan of the abdomen pelvis is pending. Patient will be reassessed after IV fluids and CT scan. If the patient is feeling better after IV fluids, suspect that she can be discharged home in stable condition. Patient signed out to the oncoming emergency department physician for further care. This document was made in part using voice recognition software. While efforts are made to proofread this document, sound alike and grammatical errors may occur. Departure - Departure Clinical Impression: Dehydration, Near syncope, Polycystic ovarian syndrome Condition: Stable
[2020-12-05 20:41] LABS: BASOPHILS % (AUTO) 0.4 %; EOSINOPHILS # (AUTO) 0.1 10^3/uL (0.0-0.7); EOSINOPHILS % (AUTO) 0.8 %; HCT - HEMATOCRIT 42.1 % (37.0-47.0); LYMPHOCYTES # (AUTO) 3.5 10^3/uL (1.5-3.5); LYMPHOCYTES % (AUTO) 41.7 %; MEAN CORPUSCULAR HEMOGLOBIN 28.5 pg (27.0-31.0); MEAN CORPUSCULAR HGB CONC 33.3 g/dL (32.0-36.0); MEAN CORPUSCULAR VOLUME 85.7 fL (81.0-99.0); MEAN PLATELET VOLUME 10.8 fL (7.9-10.8); MONOCYTES # (AUTO) 0.6 10^3/uL (0.0-1.0); NEUTROPHILS # (AUTO) 4.2 10^3/uL (1.5-6.6); NEUTROPHILS % (AUTO) 49.9 %; PLT - PLATELET COUNT 245 10^3/uL (130-450); RED BLOOD COUNT 4.91 10^6/uL (4.20-5.40); RED CELL DISTRIBUTION WIDTH 13.2 % (12.0-15.0); WHITE BLOOD COUNT 8.3 x10^3/uL (4.8-10.8)
[2020-12-05 20:49] LABS: ALBUMIN 3.9 g/dL (3.2-5.5); ALBUMIN/GLOBULIN RATIO 1.6 (1.0-2.2); BILIRUBIN,TOTAL 0.9 mg/dL (0.2-1.0); CALCIUM 9.1 mg/dL (8.5-10.3); CREATININE 0.8 mg/dL (0.4-1.0); POTASSIUM 4.2 mmol/L (3.5-5.0); TOTAL PROTEIN 6.4 g/dL (6.7-8.2)
[2020-12-05 20:57] LABS: BILIRUBIN,URINE NEGATIVE (NEGATIVE); GLUCOSE, URINE (UA) NEGATIVE (NEGATIVE); KETONES,URINE (UA) NEGATIVE (NEGATIVE); LEUKOCYTE ESTERASE, URINE NEGATIVE (NEGATIVE); NITRITE,URINE NEGATIVE (NEGATIVE); OCCULT BLOOD,URINE LARGE (NEGATIVE); PROTEIN,URINE 30 mg/dL (NEGATIVE); UROBILINOGEN,URINE 0.2 (NORMAL) E.U./dL (NORMAL)
[2020-12-05 21:09] LABS: CLARITY,URINE BLOODY (CLEAR); RBC,URINE TNTC /HPF (0-5); SQUAMOUS EPITHELIAL CELL,UR RARE Squamous (<= Few)
[2020-12-05 21:10] LABS: BACTERIA,URINE None Seen /HPF (None Seen)
[2020-12-05] MEDS ORDERED: IOPAMIDOL-300 100 ML VIAL IVP ONE (21:39)
--- NOTE | 2020-12-05 21:58 | CT Report ---
PROCEDURE: Abdomen/Pelvis W INDICATIONS: RLQ abd pain CONTRAST: IV CONTRAST: Isovue 300 ml: 100 PO CONTRAST: *NO PO CONTRAST TECHNIQUE: After the administration of IV contrast, 5 mm thick sections acquired from the diaphragms to the symp hysis. 5 mm thick coronal and sagittal reformats were acquired. For radiation dose reduction, the f ollowing was used: automated exposure control, adjustment of mA and/or kV according to patient size. COMPARISON: 11/08/2020 FINDINGS: Image quality: Excellent. ABDOMEN: Lung bases: Lung bases are clear. Heart size is normal. Solid organs: Liver and spleen are normal in size and enhancement. Gallbladder is surgically absent . Biliary system is non dilated. Pancreas enhances normally. No adrenal nodules. Kidneys demonstr ate normal size and enhancement, without hydronephrosis. Peritoneum and bowel: Bowel loops demonstrate normal wall thickness and caliber. No free fluid or a ir. Normal appendix. Nodes and vessels: Small right lower quadrant mesenteric lymph nodes are present. No retroperitoneal or mesenteric adenopathy by size criteria. Aorta and inferior vena cava are normal in size. Miscellaneous: Tiny fat-containing umbilical hernia. PELVIS: Genitourinary: Bladder wall thickness is normal. Uterus and ovaries are normal. No paraovarian flui d or suspicious adnexal masses. Miscellaneous: No inguinal hernias or adenopathy. Bones: No suspicious bony lesions. No vertebral body compression fractures. IMPRESSION: 1. No acute process. 2. Normal appendix. 3. Postcholecystectomy. Reviewed by: Katy Vaz MD on 12/05/2020 9:57 PM PDT Approved by: Katy Vaz MD on 12/05/2020 9:57 PM PDT Station ID: [id number]
--- NOTE | 2020-12-05 22:17 | ED Physician Documentation ---
ED Addendum - Addendum Addendum: 12/05/20 22:17 Patient endorsed to me by Dr. Reed. EKG at 2203 normal sinus rhythm rate of 74 with normal intervals. Nonischemic. 12/06/20 00:14 CT noncontributory. Patient feeling better after IV fluids, no longer lightheaded. She states she still has mild RLQ pain but declines pain medication or tylenol. She is concerned because she has had a tumultuous medical journey with her symptoms, including CT 11/08 that was negative for acute pathology, negative HCG 11/02, followed by positive quantitative hcg 1.21 on 12/02 that went down to <0.6 the next day (thought by our obgyn Dr. Odonnell to be attributable to her provera medication causing corpus luteum cyst formation and possible ru pture). She had u/s 12/02 that she reports was concerning for ovarian torsion or ectopic, however our records state it showed only PCOS. 12/06/20 00:39 12/06/20 01:52 Her HCG today is negative. Patient initially agreed to f/u ultrasound but then decided she didn't want to wait. plan to dc home with strict return precautions and contact center analyst follow up. Impression 1. lightheadedness 2. abdominal pain 3. PCOS
[2020-12-06 00:46] LABS: HCG UR QUAL NEGATIVE
[2020-12-06 01:02] VITALS: BP 104/78
== END 2020-12-06 02:04 | disposition home or self-care (01) ==
LOC: EDUNIT# → ED 19:54
DX: E86.0 Dehydration (principal); E28.2 Polycystic ovarian syndrome
CPT/HCPCS: 36415; 74177; 80053; 81001; 81025; 83690; 84702; 85025; 93005; 96360; 96361; 99284; Q9967; 81003; 87086